=== PATIENT | female | born 2000 | race Caucasian/White ===

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

== ENCOUNTER 2021-04-07 18:55 | Emergency (ER) | payer OTHER ==
[2021-04-07 19:02] VITALS: BP 144/84; PULSE 98; TEMP 98.3; BMI 32.8
== END 2021-04-07 20:06 | disposition home or self-care (01) ==
LOC: JERFT 18:55
DX: S90.122A Contusion of left lesser toe(s) without damage to nail, initial encounter (principal); W22.8XXA Striking against or struck by other objects, initial encounter
CPT/HCPCS: 73630-TC-LT; 73660-TC-LT-FY; 99284-25

== ENCOUNTER 2022-11-02 17:12 | Emergency (ER) | payer OTHER ==
[2022-11-02 17:18] VITALS: BMI 28.9
[2022-11-02 18:03] VITALS: TEMP 98.7
[2022-11-02 18:17] VITALS: BP 106/68; PULSE 100; RESP 20
[2022-11-02] MEDS ORDERED: ACETAMINOPHEN 325 MG TABLET (FP) PO ONE (19:04)
[2022-11-02] MEDS ORDERED: ACETAMINOPHEN 325 MG TABLET (FP) ONE (19:24)
[2022-11-02] MEDS ORDERED: SODIUM CHLORIDE 1,000 ML IV STA (19:25)
[2022-11-02] MEDS ORDERED: ACETAMINOPHEN 1000 MG/100 ML BAG IVPB ONE (19:25)
[2022-11-02] MEDS ORDERED: ACETAMINOPHEN INJECTION 100 ML IVPB ONE (19:26)
[2022-11-02 20:03] LABS: HEMATOCRIT 33.8 % (32.4-45.2); HEMOGLOBIN 11.7 GM/dL (10.7-15.3); MCH 30.5 pg (25.7-33.7); MCHC 34.5 g/dl (32.0-36.0); MEAN CELL VOLUME 88.2 fl (80-96); MEAN PLT VOLUME 8.5 fl (7.5-11.1); PLATELET COUNT 185 10^3/uL (134-434); RBC 3.83 M/mm3 (3.60-5.2); RDW 13.8 % (11.6-15.6); WHITE BLOOD COUNT 5.3 K/mm3 (4.0-10.0)
[2022-11-02 20:20] LABS: POTASSIUM 3.3 mmol/L (3.5-5.1)
[2022-11-02 20:22] LABS: CALCIUM 8.5 mg/dL (8.5-10.1)
[2022-11-02 20:23] LABS: ALBUMIN 2.8 g/dl (3.4-5.0)
[2022-11-02 20:26] LABS: CREATININE 0.4 mg/dL (0.55-1.3)
[2022-11-02 20:34] LABS: PH,URINE 6.5 (5.0-8.0); URINE APPEARANCE CLEAR; URINE BILIRUBIN NEGATIVE (NEGATIVE); URINE COLOR YELLOW; URINE GLUCOSE (UA) NEGATIVE (NEGATIVE); URINE KETONE NEGATIVE (NEGATIVE); URINE LEUK ESTERASE NEGATIVE (NEGATIVE); URINE NITRITE NEGATIVE (NEGATIVE); URINE PROTEIN NEGATIVE (NEGATIVE)
== END 2022-11-02 21:03 | disposition home or self-care (01) ==
LOC: JER 17:12
PROC: 3E033NZ Introduction of Analgesics, Hypnotics, Sedatives into Peripheral Vein, Percutaneous Approach (ICD-10-PCS; principal; 2022-11-02)
PROC: 3E0337Z Introduction of Electrolytic and Water Balance Substance into Peripheral Vein, Percutaneous Approach (ICD-10-PCS; 2022-11-02)
DX: O26.892 Other specified pregnancy related conditions, second trimester (principal); R10.30 Lower abdominal pain, unspecified; O21.9 Vomiting of pregnancy, unspecified; Z3A.21 21 weeks gestation of pregnancy
CPT/HCPCS: 36415; 80053; 81003; 85027; 99284-25

== ENCOUNTER 2023-12-18 09:20 | Emergency (ER) | payer OTHER ==
[2023-12-18 09:25] VITALS: BP 116/78; PULSE 80; RESP 20; TEMP 97.6; BMI 31.7
[2023-12-18 10:17] LABS: BASO % 0.5 % (0-2.0); EOS % 1.3 % (0-4.5); HEMOGLOBIN 12.2 GM/dL (10.7-15.3); LYMPH % 27.2 % (8-40); MCH 26.2 pg (25.7-33.7); MEAN CELL VOLUME 79.3 fl (80-96); MEAN PLT VOLUME 8.5 fl (7.5-11.1); MONO % 6.4 % (3.8-10.2); NEUT % 64.6 % (42.8-82.8); PLATELET COUNT 209 10^3/uL (134-434); RBC 4.67 M/mm3 (3.60-5.2); RDW 15.1 % (11.6-15.6); WHITE BLOOD COUNT 6.3 K/mm3 (4.0-10.0)
[2023-12-18 10:25] LABS: HCG,QUALITATIVE URINE Positive
[2023-12-18 10:26] LABS: URINE APPEARANCE CLEAR; URINE BILIRUBIN NEGATIVE (NEGATIVE); URINE COLOR YELLOW; URINE GLUCOSE (UA) NEGATIVE (NEGATIVE); URINE KETONE NEGATIVE (NEGATIVE); URINE LEUK ESTERASE NEGATIVE (NEGATIVE); URINE NITRITE NEGATIVE (NEGATIVE); URINE PROTEIN NEGATIVE (NEGATIVE); URINE UROBILINOGEN 0.2 mg/dL (0.2-1.0)
[2023-12-18 10:32] LABS: INR 1.09 (0.83-1.09); PROTHROMBIN TIME (PATIENT) 12.3 SEC (9.7-13.0)
[2023-12-18 10:34] LABS: ACTIVATED PTT 30.2 SECONDS (25.2-36.5)
[2023-12-18 10:45] LABS: POTASSIUM 3.7 mmol/L (3.5-5.1)
[2023-12-18 10:46] LABS: CALCIUM 8.5 mg/dL (8.5-10.1)
[2023-12-18 10:47] LABS: ALBUMIN 3.8 g/dl (3.4-5.0); BLOOD UREA NITROGEN 6.9 mg/dL (7-18)
[2023-12-18 10:50] LABS: CREATININE 0.6 mg/dL (0.55-1.3)
[2023-12-18 10:52] LABS: BILIRUBIN,TOTAL 1.2 mg/dL (0.2-1); TOT PROT 6.9 g/dl (6.4-8.2)
== END 2023-12-18 13:38 | disposition home or self-care (01) ==
LOC: JER 09:20
DX: O34.81 Maternal care for other abnormalities of pelvic organs, first trimester (principal); N83.11 Corpus luteum cyst of right ovary; O26.891 Other specified pregnancy related conditions, first trimester; R10.31 Right lower quadrant pain; Z3A.01 Less than 8 weeks gestation of pregnancy
CPT/HCPCS: 36415; 76817-TC; 80053; 81003; 84702; 84703; 85025; 85610; 85730; 86850; 86900; 86901; 87086; 99284-25

== ENCOUNTER 2023-12-30 15:38 | Emergency (ER) | payer OTHER ==
[2023-12-30 15:44] VITALS: BP 114/68; PULSE 16; RESP 99; TEMP 98.6; BMI 31.7
[2023-12-30 17:05] LABS: HCG,QUALITATIVE URINE Positive
[2023-12-30 17:07] LABS: EPI CELLS 4 /uL (0-25.1); HYALINE CASTS 0 /uL (0-3.1); PH,URINE 6.5 (5.0-8.0); URINE APPEARANCE CLOUDY; URINE BACTERIA 92 /uL (0-1359); URINE BILIRUBIN NEGATIVE (NEGATIVE); URINE COLOR YELLOW; URINE GLUCOSE (UA) NEGATIVE (NEGATIVE); URINE KETONE NEGATIVE (NEGATIVE); URINE LEUK ESTERASE NEGATIVE (NEGATIVE); URINE NITRITE NEGATIVE (NEGATIVE); URINE PROTEIN NEGATIVE (NEGATIVE); URINE RBC 66 /uL (0-23.9); URINE WBC 9 /uL (0-25.8)
[2023-12-30 17:46] LABS: BASO % 0.6 % (0-2.0); EOS % 0.9 % (0-4.5); HEMATOCRIT 36.4 % (32.4-45.2); HEMOGLOBIN 12.2 GM/dL (10.7-15.3); LYMPH % 28.1 % (8-40); MCH 26.3 pg (25.7-33.7); MCHC 33.5 g/dl (32.0-36.0); MEAN CELL VOLUME 78.4 fl (80-96); MEAN PLT VOLUME 8.3 fl (7.5-11.1); MONO % 6.4 % (3.8-10.2); PLATELET COUNT 265 10^3/uL (134-434); RBC 4.64 M/mm3 (3.60-5.2); RDW 14.9 % (11.6-15.6); WHITE BLOOD COUNT 10.4 K/mm3 (4.0-10.0)
[2023-12-30 18:07] LABS: POTASSIUM 3.8 mmol/L (3.5-5.1)
[2023-12-30 18:09] LABS: CALCIUM 8.8 mg/dL (8.5-10.1)
[2023-12-30 18:10] LABS: ALBUMIN 3.8 g/dl (3.4-5.0); BLOOD UREA NITROGEN 7.8 mg/dL (7-18)
[2023-12-30 18:13] LABS: CREATININE 0.6 mg/dL (0.55-1.3)
[2023-12-30 18:14] LABS: BILIRUBIN,TOTAL 0.7 mg/dL (0.2-1)
== END 2023-12-30 19:53 | disposition home or self-care (01) ==
LOC: JER 15:38
DX: O03.4 Incomplete spontaneous abortion without complication (principal)
CPT/HCPCS: 36415; 76817-TC; 80053; 81003; 84702; 84703; 85025; 86850; 86900; 86901; 87086; 99284-25

== ENCOUNTER 2024-05-29 21:00 | Emergency (ER) | payer OTHER ==
[2024-05-29 21:05] VITALS: BP 141/92; PULSE 111; RESP 18; TEMP 97.9; BMI 29.9
[2024-05-29] MEDS ORDERED: ACETAMINOPHEN 500 MG TABLET (FP) ONE (21:17)
[2024-05-29] MEDS ORDERED: IBUPROFEN 600 MG TABLET (FP) PO ONE (21:17)
[2024-05-29] MEDS: IBUPROFEN 600 MG TABLET (FP) PO ONE (21:22)
[2024-05-29] MEDS: ACETAMINOPHEN 500 MG TABLET (FP) PO ONE (21:22)
[2024-05-29] MEDS ORDERED: DIPHTH,PERTUSS(ACELL),TET 0.5 ML DISP.SYRIN IM ONE (21:27)
[2024-05-29] MEDS: DIPHTH,PERTUSS(ACELL),TET 0.5 ML DISP.SYRIN IM ONE (21:31)
== END 2024-05-29 22:06 | disposition home or self-care (01) ==
LOC: JER 21:00
PROC: 3E0234Z Introduction of Serum, Toxoid and Vaccine into Muscle, Percutaneous Approach (ICD-10-PCS; principal; 2024-05-29)
DX: T22.231A Burn of second degree of right upper arm, initial encounter (principal); X10.2XXA Contact with fats and cooking oils, initial encounter; Z23 Encounter for immunization
CPT/HCPCS: 90471; 90715; 99284-25

== ENCOUNTER 2024-06-08 11:35 | Emergency (ER) | payer OTHER ==
[2024-06-08 11:43] VITALS: BP 121/79; PULSE 75; RESP 17; TEMP 98.4; BMI 30.2
[2024-06-08 12:30] LABS: PH,URINE 7.5 (5.0-8.0); URINE APPEARANCE CLEAR; URINE BILIRUBIN NEGATIVE (NEGATIVE); URINE COLOR YELLOW; URINE GLUCOSE (UA) NEGATIVE (NEGATIVE); URINE KETONE NEGATIVE (NEGATIVE); URINE LEUK ESTERASE NEGATIVE (NEGATIVE); URINE NITRITE NEGATIVE (NEGATIVE); URINE PROTEIN NEGATIVE (NEGATIVE); URINE UROBILINOGEN 0.2 mg/dL (0.2-1.0)
[2024-06-08 12:32] LABS: HCG,QUALITATIVE URINE Negative
[2024-06-08 12:37] LABS: BASO % 0.7 % (0-2.0); HEMATOCRIT 39.3 % (32.4-45.2); HEMOGLOBIN 12.5 GM/dL (10.7-15.3); LYMPH % 30.7 % (8-40); MCH 25.8 pg (25.7-33.7); MCHC 31.9 g/dl (32.0-36.0); MEAN CELL VOLUME 80.9 fl (80-96); MEAN PLT VOLUME 8.6 fl (7.5-11.1); MONO % 6.4 % (3.8-10.2); NEUT % 61.2 % (42.8-82.8); PLATELET COUNT 246 10^3/uL (134-434); RBC 4.86 M/mm3 (3.60-5.2); RDW 14.8 % (11.6-15.6); WHITE BLOOD COUNT 7.2 K/mm3 (4.0-10.0)
[2024-06-08 12:44] LABS: INR 0.96 (0.83-1.09); PROTHROMBIN TIME (PATIENT) 10.9 SEC (9.7-13.0)
[2024-06-08 12:47] LABS: ACTIVATED PTT 30.8 SECONDS (25.2-36.5)
[2024-06-08 13:02] LABS: POTASSIUM 3.9 mmol/L (3.5-5.1)
[2024-06-08 13:05] LABS: ALBUMIN 3.8 g/dl (3.4-5.0); BLOOD UREA NITROGEN 8.5 mg/dL (7-18); CALCIUM 9.2 mg/dL (8.5-10.1)
[2024-06-08 13:08] LABS: CREATININE 0.7 mg/dL (0.55-1.3)
[2024-06-08 13:09] LABS: BILIRUBIN,TOTAL 0.9 mg/dL (0.2-1); TOT PROT 7.2 g/dl (6.4-8.2)
[2024-06-08 14:13] LABS: HIV INTERPRETATION NEGATIVE (NEGATIVE)
== END 2024-06-08 13:26 | disposition home or self-care (01) ==
LOC: JER 11:35
DX: K64.4 Residual hemorrhoidal skin tags (principal)
CPT/HCPCS: 36415; 80053; 81003; 82272; 84703; 85025; 85610; 85730; 86803; 87086; 87389; 99283-25